=== PATIENT | male | born 1990 ===

== ENCOUNTER 2021-02-22 21:43 | Emergency (ER) | payer OTHER ==
--- NOTE | 2021-02-22 22:36 | Emergency Department Report ---
ED Headache HPI - General Chief Complaint: Headache Stated Complaint: HEADACHES Time Seen by Provider: 02/22/21 22:18 - History of Present Illness Initial Comments: Patient is a 30-year-old male presents emergency room complaints of a frontal headache that began 2 weeks ago. He states he also feels the pain around his eyes. He has associated rhinorrhea. He denies any fever, nausea, vomiting, diarrhea, sensitivity to light or sounds, numbness, weakness, speech disturbance, gait disturbance, neck stiffness. No past medical history. No allergies to medications. Allergies/Adverse Reactions: Allergies No Known Allergies Allergy (Unverified 02/22/21 21:46) Home Medications: Ambulatory Orders Amoxicillin/Potassium Clav [Augmentin 875-125 Tablet] 1 each PO BID 10 Days #20 tablet 02/22/21 Butalb/Acetaminophen/Caffeine [Fioricet 50-300-40 mg CAP] 1 cap PO Q8HR PRN #12 cap 02/22/21 Fluticasone [Flonase] 1 spray NS QDAY #1 bottle 02/22/21 ED Review of Systems ROS: Stated complaint: HEADACHES Other details as noted in HPI Comment: All other systems reviewed and negative ED Past Medical Hx - Past Medical History Previous Medical History?: No - Surgical History Past Surgical History?: No - Medications Home Medications: Home Medications Medication Instructions Recorded Confirmed Last Taken Type Amoxicillin/Potassium Clav 1 each PO BID 10 Days #20 tablet 02/22/21 Unknown Rx [Augmentin 875-125 Tablet] Butalb/Acetaminophen/Caffeine 1 cap PO Q8HR PRN #12 cap 02/22/21 Unknown Rx [Fioricet 50-300-40 mg CAP] Fluticasone [Flonase] 1 spray NS QDAY #1 bottle 02/22/21 Unknown Rx ED Physical Exam - General Limitations: No Limitations General appearance: alert, in no apparent distress - Head Head exam: Present: atraumatic, normocephalic - Eye Eye exam: Present: normal appearance, PERRL, EOMI. Absent: periorbital swelling, periorbital tenderness - ENT ENT exam: Present: mucous membranes moist, other (left sided maxillary sinus ttp) - Neck Neck exam: Present: full ROM. Absent: meningismus - Respiratory Respiratory exam: Present: normal lung sounds bilaterally. Absent: respiratory distress, wheezes, rales, rhonchi, stridor, chest wall tenderness, accessory muscle use, decreased breath sounds, prolonged expiratory - Cardiovascular Cardiovascular Exam: Present: regular rate, normal rhythm, normal heart sounds. Absent: systolic murmur, diastolic murmur, rubs, gallop - Neurological Exam Neurological exam: Present: alert, oriented X3 - Psychiatric Psychiatric exam: Present: normal affect, normal mood - Skin Skin exam: Present: warm, dry, intact ED Course Vital Signs 02/22/21 02/22/21 21:46 23:42 Temperature 98.3 F Pulse Rate 94 H 77 Respiratory 18 18 Rate Blood Pressure 137/91 Blood Pressure 136/88 [Right] O2 Sat by Pulse 98 100 Oximetry ED Medical Decision Making - Medical Decision Making Patient is a 30-year-old male presents emergency room complaints of a frontal headache that began 2 weeks ago. He states he also feels the pain around his eyes. He has associated rhinorrhea. He denies any fever, nausea, vomiting, diarrhea, sensitivity to light or sounds, numbness, weakness, speech disturbance, gait disturbance, neck stiffness. No past medical history. No allergies to medications. Vitals are normal. On exam:left sided maxillary sinus ttp. Patient has no focal neuro deficits, no meningeal signs. Patient has had no trauma. Symptoms and examination appear likely consistent with sinusitis, symptoms have been ongoing for 2 weeks. Patient given prescription for medications. Advised patient Please take medication as prescribed. Increase your water intake. Follow-up with your primary care doctor. Return to emergency room for any new or worsening symptoms. Critical care attestation.: If time is entered above; I have spent that time in minutes in the direct care of this critically ill patient, excluding procedure time. ED Disposition Clinical Impression: Headache Qualifiers: Headache type: unspecified Headache chronicity pattern: acute headache Intractability: not intractable Qualified Code(s): R51.9 - Headache, unspecified Acute sinusitis Qualifiers: Sinusitis location: maxillary Recurrence: non-recurrent Qualified Code(s): J01.00 - Acute maxillary sinusitis, unspecified Disposition: HOME / SELF CARE / HOMELESS Is pt being admited?: No Does the pt Need Aspirin: No Condition: Stable Instructions: Sinusitis, Adult, [id number] Additional Instructions: Please take medication as prescribed. Increase your water intake. Follow-up with your primary care doctor. Return to emergency room for any new or worsening symptoms. Prescriptions: Amoxicillin/Potassium Clav [Augmentin 875-125 Tablet] 1 each PO BID 10 Days #20 tablet Butalb/Acetaminophen/Caffeine [Fioricet 50-300-40 mg CAP] 1 cap PO Q8HR PRN #12 cap PRN Reason: headache Fluticasone [Flonase] 1 spray NS QDAY #1 bottle Referrals: KATHERINE FOSTER MD [Staff Physician] - 3-5 Days [facility] [Provider Group] - 3-5 Days Time of Disposition: 22:35 Print Language: SINHAL[place]
[2021-02-22 23:43] VITALS: BP 136/88
== END 2021-02-22 23:43 | disposition home or self-care (01) ==
LOC: ED 21:43
DX: J01.90 Acute sinusitis, unspecified (principal)
CPT/HCPCS: 99282